=== PATIENT | male | born 1975 | race Caucasian/White ===

== ENCOUNTER 2020-03-03 18:02 | Emergency (ER) | payer BC ==
[~2020-03-03] VITALS: Ht 185.4 cm; Wt 130.6 kg
[2020-03-03 18:02] VITALS: BP_SYST 148
[2020-03-03] MEDS ORDERED: methylPREDNISolone SOD SUCC/PF 62.5 MG/ML VIAL IVP ONE (18:15)
[2020-03-03] MEDS ORDERED: FAMOTIDINE PF 20 MG/2 ML VIAL IVP ONE (18:15)
[2020-03-03] MEDS ORDERED: EPINEPHrine 1 MG/ML AMP IM ONE (18:15)
[2020-03-03 18:26] LABS: BASOPHILS % (AUTO) 0.6 % (0.0-2.0); EOSINOPHILS # (AUTO) 0.1 K/uL (0.0-0.4); EOSINOPHILS % (AUTO) 2.2 % (0.0-4.0); HEMATOCRIT 45.7 % (36-54); HEMOGLOBIN 15.5 g/dL (14.0-18.0); LYMPHOCYTES # (AUTO) 2.6 K/uL (1.0-5.5); LYMPHOCYTES % (AUTO) 41.3 % (20.5-51.5); MEAN CORPUSCULAR HEMOGLOBIN 30 pg (27-31); MEAN CORPUSCULAR HGB CONC 34 % (32-36); MEAN CORPUSCULAR VOLUME 89 fL (79.0-98.0); MONOCYTES # (AUTO) 0.7 K/uL (0.0-1.0); MONOCYTES % (AUTO) 10.5 % (1.7-9.3); NEUTROPHILS # (AUTO) 2.8 K/uL (1.8-7.7); NEUTROPHILS % (AUTO) 45.4 % (40.0-70.0); PLATELET COUNT (AUTO) 214 K/uL (130-430); RED BLOOD CELL COUNT(AUTO) 5.13 MIL/uL (4.2-6.2); RED CELL DISTRIBUTION WIDTH 12.8 % (9.0-15.0); WHITE BLOOD COUNT (AUTO) 6.2 K/uL (4.8-10.8)
[2020-03-03 18:40] LABS: CALCIUM 8.7 mg/dL (8.4-11.0); CREATININE 1.27 mg/dL (0.55-1.30); POTASSIUM 3.3 mmol/L (3.5-5.1)
[2020-03-03 18:45] LABS: ALBUMIN 4.1 g/dL (3.4-4.8); TOTAL BILIRUBIN 0.5 mg/dL (0.0-1.0)
[2020-03-03] MEDS ORDERED: ONDANSETRON HCL 4 MG/2 ML VIAL IVP ONE (18:45)
[2020-03-03 22:57] VITALS: BP_SYST 157
== END 2020-03-03 22:57 | disposition home or self-care (01) ==
LOC: SED 18:02
DX: T78.2XXA Anaphylactic shock, unspecified, initial encounter (principal); E87.6 Hypokalemia; I10 Essential (primary) hypertension; R73.9 Hyperglycemia, unspecified; K21.9 Gastro-esophageal reflux disease without esophagitis; Z91.030 Bee allergy status; X58.XXXA Exposure to other specified factors, initial encounter
CPT/HCPCS: 36415; 80053; 85025; 96372; 96374; 96375; 99284; J0171; J2405; J2930; J3490

== ENCOUNTER 2020-11-10 16:06 | Emergency (ER) | payer BC ==
[~2020-11-10] VITALS: Ht 185.4 cm; Wt 135.2 kg
[2020-11-10 16:25] VITALS: BP_SYST 149
[2020-11-10] MEDS ORDERED: LIDOCAINE 1%, 20 ML MDV 20 ML ONE (16:56)
[2020-11-10] MEDS ORDERED: LIDOCAINE 1% 10 MG/ML, 20 ML MDV IM ONE (17:00)
[2020-11-10] MEDS ORDERED: DIPH-TET-PERTUS Vaccine 0.5 ML VIAL (ADACEL) I.M. ONE (17:00)
[2020-11-10] MEDS ORDERED: BACITRACIN 1 GM OINT TP ONE (17:16)
[2020-11-10 17:35] VITALS: BP_SYST 149
== END 2020-11-10 17:35 | disposition home or self-care (01) ==
LOC: SED 16:06
DX: S62.603A Fracture of unspecified phalanx of left middle finger, initial encounter for closed fracture (principal); S61.213A Laceration without foreign body of left middle finger without damage to nail, initial encounter; K21.9 Gastro-esophageal reflux disease without esophagitis; Z91.030 Bee allergy status; W18.39XA Other fall on same level, initial encounter; Y93.67 Activity, basketball; Y92.89 Other specified places as the place of occurrence of the external cause; Y99.8 Other external cause status
CPT/HCPCS: 12001; 73140; 90471; 90715; 99283; J2001

== ENCOUNTER 2020-11-12 14:18 | Emergency (ER) | payer BC ==
[~2020-11-12] VITALS: Ht 185.4 cm; Wt 133.8 kg
[2020-11-12 14:25] VITALS: BP_SYST 140
--- NOTE | 2020-11-12 14:29 | NUR ---
Pt triaged and placed in tent for MD evaluation.
--- NOTE | 2020-11-12 14:30 | NUR ---
Pt walked in to ER for wound check to left finger. Pt reports having stitches placed 2 days ago. Denies any fever, pain or discomfort at this time. V/S stable, no distress noted.
--- NOTE | 2020-11-12 14:50 | NUR ---
ER Dr. Preston at bedside examining patient.
--- NOTE | 2020-11-12 15:30 | NUR ---
Patient given written and verbal discharge instructions and verbalizes understanding. ER MD discussed with patient the results and treatment provided. Patient in stable condition. ID arm band removed. No prescriptions given. Patient educated on pain management and to follow up with PMD. Pain Scale 0. Opportunity for questions provided and answered. Medication side effect fact sheet provided.
[2020-11-12 15:32] VITALS: BP_SYST 140
== END 2020-11-12 15:30 | disposition home or self-care (01) ==
LOC: SED 14:18
DX: S61.213D Laceration without foreign body of left middle finger without damage to nail, subsequent encounter (principal); K21.9 Gastro-esophageal reflux disease without esophagitis; Z91.030 Bee allergy status; X58.XXXD Exposure to other specified factors, subsequent encounter
CPT/HCPCS: 99281